=== PATIENT | female | born 1965 ===

== ENCOUNTER 2017-03-25 09:41 | Day surgery (SDC) | payer OTHER ==
[2017-03-19 10:45] VITALS: BMI 35.9
[2017-03-25] MEDS ORDERED: Lactated Ringer's 1,000 ML IV ONE ×2 (14:00→14:33)
[2017-03-25] MEDS ORDERED: Propofol 10 mg/ml Inj (20 ML) ONE (14:01)
[2017-03-25] MEDS ORDERED: Midazolam 2 MG/2 ML VIAL ONE (14:01)
[2017-03-25] MEDS ORDERED: cefOXitin IV 1 gm in Dextrose 1 GM/50 ML BAG IVPB ONE (14:03)
[2017-03-25 16:41] VITALS: BP 129/66; PULSE 88; RESP 20; TEMP 98; O2SAT 98
--- NOTE | 2017-05-08 05:06 | OP ---
PROCEDURE DATE: 03/25/2017 PREOPERATIVE DIAGNOSIS: Postmenopausal bleeding with thickened endometrium and endometrial polyps. POSTOPERATIVE DIAGNOSIS: Postmenopausal bleeding with thickened endometrium and endometrial polyps. PROCEDURE: Hysteroscopy, MyoSure, dilation and curettage. SURGEON: Yanci Beltre MD ANESTHESIOLOGIST: Dany Quach MD TYPE OF ANESTHESIA: General LMA. FINDINGS: An anteverted uterus approximately 8 weeks' gestation. COMPLICATIONS: None. ESTIMATED BLOOD LOSS: Approximately 10 mL. IV FLUIDS: 500 mL. INPUT AND OUTPUT: 100 mL. SPECIMEN: EMC, ECC, and polyp. DESCRIPTION OF PROCEDURE: The patient was informed of the risks factors, benefits, and alternatives of the procedure. Risk factors included infection, bleeding, damage to the surrounding organs and tissues, complication from anesthesia, and possible . After informed consent was obtained, she was then taken to the operating room, prepped and draped in a normal sterile fashion, placed in a dorsal lithotomy position. A weighted speculum was placed into the vagina. The anterior lip of the cervix was grasped with a single-toothed tenaculum. The uterus was gently sounded to approximately 8 cm. Upon completing uterine dilation, the scope was then placed. A complete surveillance of the uterine cavity was then performed and noted to have an endometrial polyp. The MyoSure device was then activated and the polyp was then removed in that particular entrance. The scope was then removed and a fractional D and C was then performed. EMC and ECC were submitted to Pathology. Excellent hemostasis was noted. Upon completion, all instruments were removed from the vagina. Instrument and lap count were correct x2. The patient was then taken to recovery room in stable condition, and instructed to follow up in the office in approximately 2 weeks. Yanci Beltre MD
== END 2017-03-25 16:40 | disposition home or self-care (01) ==
LOC: C.SDS 09:41
PROVIDERS: ATTEND Obstetrics & Gynecology
DX: N95.0 Postmenopausal bleeding (principal); N84.0 Polyp of corpus uteri
CPT/HCPCS: 58558; 82948; 88305; J0694; J2250; J2704; J3010; J7120

== ENCOUNTER 2017-09-08 09:48 | Inpatient (IN) | payer OTHER ==
[2017-08-18 13:14] VITALS: BMI 35.2
[2017-09-08] MEDS ORDERED: Midazolam 2 MG/2 ML VIAL ONE (15:24)
[2017-09-08] MEDS ORDERED: Propofol 10 mg/ml Inj (20 ML) ONE (15:24)
[2017-09-08] MEDS ORDERED: cefOXitin IV 1 gm in Dextrose 2 GM/100 ML BAG IVPB ONE (15:27)
[2017-09-08] MEDS ORDERED: [UNRECOGNIZED DRUG - OTHER] IV ONE (17:48)
[2017-09-08] MEDS ORDERED: Neostigmine Methylsulfate 3mg/3ml Syringe IV ONE (18:44)
[2017-09-08] MEDS ORDERED: Sodium Chloride 0.9% 1,000 ML IV SCH (19:00)
--- NOTE | 2017-09-08 19:04 | PCM.SURG1 ---
Surgeon's Initial Post Op Note - Surgeon's Notes Surgeon: Dr. Kiera aCrtwright Acetylene Torch Operator: Dr. Yanci Beltre Type of Anesthesia: General Endo Pre-Operative Diagnosis: chronic pelvic pain, menorrhagia, recurrent endometrial polyps, irregular menses, fibroid uterus Operative Findings: enlarged uterus, endometriosis, intraabdominal adhesions, normal appearing fallopian tubes and ovaries Post-Operative Diagnosis: same Operation Performed: Total laparoscopic hysterectomy, BSO, cystoscopy, lysis of adhesions Specimen/Specimens Removed: uterus, cervix, bilateral fallopian tubes and ovaries Estimated Blood Loss: EBL {In ML}: 200 Blood Products Given: N/A Drains Used: No Drains Post-Op Condition: Good Date of Surgery/Procedure: 09/08/17 Time of Surgery/Procedure: 16:00
[2017-09-08] MEDS: HYDROmorphone 0.5 mg/0.5 ml ISec IVP PRN ×2 (19:35→19:55)
[2017-09-08] MEDS ORDERED: Sodium Chloride 0.9% 1,000 ML IV ONE (20:45)
[2017-09-08] MEDS ORDERED: cefOXitin IV 2 gm in Saline 2 GM/50 ML BAG IVPB ONE (23:15)
[2017-09-08] MEDS: cefOXitin IV 2 gm in Saline 2 GM/50 ML BAG IVPB SCH (23:17)
[2017-09-08] MEDS ORDERED: cefOXitin IV 2 gm in Dextrose 2 GM/50 ML BAG IVPB SCH (23:30)
[2017-09-09] MEDS: HYDROmorphone 0.5 mg/0.5 ml ISec IVP PRN ×2 (02:10→08:36)
[2017-09-09 07:31] LABS: HEMOGLOBIN 12.3 g/dL (11.0-16.0); MEAN CORPUSCULAR HEMOGLOBIN 28.8 pg (27.0-31.0); MEAN CORPUSCULAR HGB CONC 33.9 g/dL (33.0-37.0); MEAN PLATELET VOLUME 9.1 fL (7.2-11.7); RBC 4.27 Mil/uL (3.80-5.20); RED CELL DISTRIBUTION WIDTH 14.7 % (11.5-14.5); WHITE BLOOD COUNT 10.9 K/uL (4.8-10.8)
[2017-09-09 07:42] LABS: ALB/GLOB RATIO 1.4 (1.0-2.1); ALBUMIN 3.9 g/dL (3.5-5.0); ALT/SGPT 27 U/L (9-52); AST/SGOT 31 U/L (14-36); BLOOD UREA NITROGEN 20 mg/dL (7-17); CALCIUM 9.4 mg/dl (8.6-10.4); GFR AFRICAN-AMERICAN > 60; GFR NON-AFRICAN AMERICAN > 60
[2017-09-09] MEDS ORDERED: HYDROmorphone 0.5 mg/0.5 ml ISec IVP STA (08:30)
[2017-09-09] MEDS: cefOXitin IV 2 gm in Saline 2 GM/50 ML BAG IVPB SCH ×2 (08:34→15:53)
[2017-09-09] MEDS ORDERED: Oxycodone/Acetaminophen 5/325 mg Tab PO PRN ×2 (09:49→09:56)
[2017-09-09 10:03] VITALS: RESP 18
[2017-09-09 16:46] VITALS: BP 135/62; PULSE 20; TEMP 98.8; O2SAT 98
--- NOTE | 2017-09-10 15:28 | PCM.OP ---
Operative Report - Operative Report Date of Surgery/Procedure: 09/08/17 Time of Surgery/Procedure: 14:30 Surgeon: Dr. Cartwright Business Intelligence Architect: Monica Owens Anesthesia/Sedation: General Endotracheal Pre-Operative Diagnosis: menorrhagia, recurrent endometrial polyps, fibroid uterus, pelvic pain Post-Operative Diagnosis: same Indication for Surgery: menorrhagia, recurrent endometrial polyps, fibroid uterus, pelvic pain Operative Findings: enlarged uterus, bowel adherent to pelvic side wall, bilateral ovarian cysts. Procedure/Operation Description: Total laparoscopic hysterectomy, BSO, lysis of adhesions, cystoscopy. After all relevant documentation was reviewed by MD patient was taken to OR . She was placed under general anesthesia, prepped and drapped in the usual fashion after being placed in lithotomy position. A weighed speculum was introduced and the cervix wa grasped with a single tooth tenaculum. The cervix was serially dilated and a Vcare device was placed. A 5mm suppraumbilical incision was made with a scalpel and a 5mm trocar was placed under direct visualization with the scope. Once inside the intraabdominal cavity , pneumoperitoneum was achieved and bilateral lower quadrant 5 mm ports were placed under direct visualization. Bowel was noted to be adherent to left pelvic side wall and lysis of adhesions was performed. With the use of a ligature the utero-ovarian ligaments were transected bilaterally Once the round ligaments were cauterized and cut the anterior leaf of the broad ligaments were dissected down and the bladder flap was created bilaterally. The posterior leaf of the broad ligaments were also sequentially dissected down to skeletonize the uterine arteries. The uterine arteries were then cauterized and cut as well as the Cardinal and Uterosacral ligaments. Posterior colpotomy was performed with a monopolar hook device and the incision was extended circumferentially around the Vcare device. Once the uterus and cervix were completely amputated, the uterus was removed vaginally. The vaginal cuff was sutured vaginally in a 2 layer closure with O-Vicryl. The fallopian tubes and ovaries were removed laparoscopically. Examinations of the pedicles and vaginal cuff revealed excellent hemostasis. FlowSeal was applied to pedicles and vaginal cuff prior to evacuating pneumoperitoneum and removing the ports. Once the ports were removed, the incisions were closed with 3-0 Monocryl in a subcuticular fashion and convered with Dermabond. Excelllent hemostasis was noted. Cystoscopy was performed and bladder was noted to be intact and bilateral ureteral jets were noted. Estimated Blood Loss: 200mL Blood Replaced: none Sponge/Instrument Count: correct x 2 Complications: none Specimen: uterus, cervix, bilateral fallopian tubes and ovaries Discharge & Condition: stable
== END 2017-09-09 18:10 | disposition home or self-care (01) | DRG 743 ==
LOC: C.SDS 09:48 → C.9E 19:26 → C.9S 20:18 → C.4M 21:01
PROVIDERS: ADMIT Obstetrics & Gynecology; ATTEND Obstetrics & Gynecology
PROC: 0UT24ZZ Resection of Bilateral Ovaries, Percutaneous Endoscopic Approach (ICD-10-PCS; 2017-09-08)
PROC: 0UT74ZZ Resection of Bilateral Fallopian Tubes, Percutaneous Endoscopic Approach (ICD-10-PCS; 2017-09-08)
PROC: 0DNW4ZZ Release Peritoneum, Percutaneous Endoscopic Approach (ICD-10-PCS; 2017-09-08)
PROC: 0TJB8ZZ Inspection of Bladder, Via Natural or Artificial Opening Endoscopic (ICD-10-PCS; 2017-09-08)
PROC: 0UT94ZZ Resection of Uterus, Percutaneous Endoscopic Approach (ICD-10-PCS; principal; 2017-09-08 16:00)
DX: D25.1 Intramural leiomyoma of uterus (principal); D25.0 Submucous leiomyoma of uterus; N73.6 Female pelvic peritoneal adhesions (postinfective); N84.0 Polyp of corpus uteri; N83.292 Other ovarian cyst, left side; N83.291 Other ovarian cyst, right side; N92.0 Excessive and frequent menstruation with regular cycle; N85.00 Endometrial hyperplasia, unspecified; G89.29 Other chronic pain